=== PATIENT | female | born 1940 | race Caucasian/White ===

== ENCOUNTER 2017-09-03 22:09 | Emergency (ER) | payer MEDICARE, BC ==
[2017-09-03] MEDS ORDERED: Sodium Chloride 0.9% 1,000 ML IV SCH (23:00)
[2017-09-03] MEDS ORDERED: LORazepam 2 MG/ML SDV IVPUSH ONE (23:01)
[2017-09-03] MEDS ORDERED: Ondansetron 4 MG/2 ML SDV IVPUSH ONE (23:01)
[2017-09-03] MEDS ORDERED: Meclizine 25 MG Tab PO ONE (23:58)
[2017-09-04] MEDS ORDERED: Sodium Chloride 0.9% 1,000 ML IV SCH (00:15)
--- NOTE | 2017-09-04 00:18 | EDM.PDOC ---
ED HPI GENERAL MEDICAL PROBLEM - General Chief Complaint: Syncope Stated Complaint: DIZZY Time Seen by Provider: 09/03/17 22:45 Source of Information: Reports: Patient, Family History Limitations: Reports: No Limitations - History of Present Illness INITIAL COMMENTS - FREE TEXT/NARRATIVE: pt arrived with marked vertigo. She has had many episodes like this. She was vomiting markedly. She did not have a headache. Onset: Today Duration: Hour(s): Location: Reports: Other ( came on suddenly this pm. ) Associated Symptoms: Reports: Nausea/Vomiting, Other ( vertigo) - Related Data Allergies Allergy/AdvReac Type Severity Reaction Status Date / Time acetaminophen [From [place]] Allergy Itching Verified 09/03/17 23:15 hydrocodone [From [place]] Allergy Itching Verified 09/03/17 23:15 lisinopril Allergy Cannot Verified 09/03/17 23:15 Remember lovastatin Allergy Body Aches Verified 09/03/17 23:15 oxycodone Allergy Cannot Verified 09/03/17 23:15 Remember Penicillins Allergy Cannot Verified 09/03/17 23:04 Remember Sulfa (Sulfonamide Allergy Cannot Verified 09/03/17 23:04 Antibiotics) Remember Home Meds: Home Meds Levothyroxine Sodium [Synthroid] 100 mcg PO DAILY 09/03/17 [History] Meclizine [Antivert] 25 mg PO ASDIRECTED PRN 09/03/17 [History] Ondansetron [Zofran ODT] 4 mg PO ASDIRECTED PRN 09/03/17 [History] Aspirin 81 mg PO DAILY 09/04/17 [History] Calcium Carbonate/Vitamin D3 [Os-Faheem 500+D] 1 tab PO DAILY 09/04/17 [History] Loratadine [Claritin] 10 mg PO DAILY 09/04/17 [History] Meloxicam [Mobic] 7.5 mg PO DAILY 09/04/17 [History] Metoprolol Succinate 50 mg PO DAILY 09/04/17 [History] Simvastatin [Zocor] 40 mg PO DAILY 09/04/17 [History] buPROPion [Wellbutrin SR] 100 mg PO DAILY 09/04/17 [History] Past Medical History HEENT History: Reports: Hard of Hearing Cardiovascular History: Reports: High Cholesterol, Hypertension [employer] History: Reports: Endocrine/Metabolic History: Reports: Hypothyroidism - Past Surgical History GI Surgical History: Reports: Cholecystectomy Musculoskeletal Surgical History: Reports: Hip Replacement Social & Family History - Tobacco Use Smoking Status *Q: Never Smoker - Caffeine Use Caffeine Use: Reports: Coffee - Recreational Drug Use Recreational Drug Use: No ED ROS GENERAL - Review of Systems Review Of Systems: See Below Constitutional: Reports: Diaphoresis HEENT: Reports: No Symptoms Respiratory: Reports: No Symptoms Cardiovascular: Reports: No Symptoms Endocrine: Reports: No Symptoms GI/Abdominal: Reports: Nausea, Vomiting, Other ( vertigo. ) : Reports: No Symptoms Musculoskeletal: Reports: No Symptoms Skin: Reports: No Symptoms Psychiatric: Reports: Anxiety ED EXAM, DIZZINESS - Physical Exam Exam: See Below Text/Narrative:: pt arrived with marked vertigo and vomiting that stated suddenly this evening. she does not have a headache but she is seeing double. Exam Limited By: No Limitations General Appearance: Alert, Anxious, Moderate Distress, Other (pupils equal and reactive. ) Ears: Normal TMs Nose: Normal Inspection Throat/Mouth: Normal Inspection Head Exam: Atraumatic Neck: Normal Inspection Respiratory/Chest: No Respiratory Distress Cardiovascular: Regular Rate, Rhythm (Female) Exam: Deferred Rectal (Female) Exam: Deferred Neurological: Alert Back Exam: Normal Inspection Extremities: Normal Inspection Psychiatric: Anxious Course - Vital Signs Last Recorded V/S: Last Vital Signs Temp 35.0 C L 09/04/17 01:37 Pulse 77 09/04/17 01:37 Resp 14 09/04/17 01:37 BP 156/81 H 09/04/17 01:37 Pulse Ox 88 L 09/04/17 01:37 - Orders/Labs/Meds Labs: Laboratory Tests 09/03/17 09/03/17 09/04/17 Range/Units 23:10 23:10 01:10 WBC 7.8 (4.5-11.0) K/uL RBC 4.69 (3.30-5.50) M/uL Hgb 14.4 (12.0-15.0) g/dL Hct 42.1 (36.0-48.0) % MCV 90 (80-98) fL MCH 31 (27-31) pg MCHC 34 (32-36) % Plt Count 193 (150-400) K/uL Neut % (Auto) 71 H (36-66) % Lymph % (Auto) 19 L (24-44) % [place] % (Auto) 9 H (2-6) % Eos % (Auto) 1 L (2-4) % Baso % (Auto) 0 (0-1) % Sodium 140 (140-148) mmol/L Potassium 3.7 (3.6-5.2) mmol/L Chloride 105 (100-108) mmol/L Carbon Dioxide 24 (21-32) mmol/L Anion Gap 11.1 (5.0-14.0) mmol/L BUN 22 H (7-18) mg/dL Creatinine 1.3 H (0.6-1.0) mg/dL Est Cr Clr Drug Dosing 29.03 mL/min Estimated GFR (MDRD) 40 L (>60) Glucose 134 H (74-106) mg/dL Calcium 8.9 (8.5-10.1) mg/dL Total Bilirubin 0.9 (0.2-1.0) mg/dL AST 21 (15-37) U/L ALT 26 (12-78) U/L Alkaline Phosphatase 89 (46-116) U/L Total Protein 6.8 (6.4-8.2) g/dL Albumin 3.7 (3.4-5.0) g/dL Globulin 3.1 (2.3-3.5) g/dL Albumin/Globulin Ratio 1.2 (1.2-2.2) Urine Color Yellow Urine Appearance Clear Urine pH 7.0 (4.5-8.0) Ur Specific [place] 1.010 (1.008-1.030) Urine Protein Negative (NEGATIVE) mg/dL Urine Glucose (UA) Normal (NEGATIVE) mg/dL Urine Ketones Negative (NEGATIVE) mg/dL Urine Occult Blood Negative (NEGATIVE) Urine Nitrite Negative (NEGATIVE) Urine Bilirubin Negative (NEGATIVE) Urine Urobilinogen Normal (NORMAL) mg/dL Ur Leukocyte Esterase Moderate (NEGATIVE) Urine RBC 0-5 (0-5) Urine WBC 0-5 (0-5) Ur Epithelial Cells Few Amorphous Sediment Not seen Urine Bacteria Few Urine Mucus Not seen Meds: Medications Discontinued Medications Generic Name Dose Route Start Last Admin Trade Name Freq PRN Reason Stop Dose Admin Sodium Chloride 1,000 mls @ 999 mls/hr 09/03/17 23:00 09/03/17 23:12 Normal Saline IV 999 mls/hr ASDIRECTED BETTIE Administration Sodium Chloride 1,000 mls @ 400 mls/hr 09/04/17 00:15 09/04/17 00:17 Normal Saline IV 400 mls/hr ASDIRECTED BETTIE Administration Ibuprofen 600 mg 09/04/17 02:03 09/04/17 02:10 Motrin PO 09/04/17 02:04 600 mg ONETIME ONE Administration Labetalol HCl 20 mg 09/04/17 01:10 09/04/17 01:15 Normodyne IVPUSH 09/04/17 01:11 20 mg NOW ONE Administration Protocol Labetalol HCl 20 mg 09/04/17 01:37 09/04/17 01:48 Normodyne IVPUSH 09/04/17 01:38 Not Given NOW ONE Protocol Lorazepam 0.5 mg 09/03/17 23:01 09/03/17 23:10 Ativan IVPUSH 09/03/17 23:02 0.5 mg ONETIME ONE Administration Meclizine HCl 25 mg 09/03/17 23:58 09/04/17 00:03 Antivert PO 09/03/17 23:59 25 mg ONETIME ONE Administration Ondansetron HCl 4 mg 09/03/17 23:01 09/03/17 23:08 Zofran IVPUSH 09/03/17 23:02 4 mg ONETIME ONE Administration Ondansetron HCl 4 mg 09/04/17 02:03 09/04/17 02:10 Zofran IVPUSH 09/04/17 02:04 4 mg ONETIME ONE Administration - Re-Assessments/Exams Free Text/Narrative Re-Assessment/Exam: 09/04/17 01:38 pt was given zoforan, ativan .5 and antivert. She is feeling better. The double vision is improving/. She had a cat scn of the head which was neg. 09/04/17 01:40 Departure - Departure Time of Disposition: 01:41 Disposition: Home, Self-Care 01 Condition: Fair Clinical Impression: Inner ear dysfunction - Discharge Information Instructions: Vertigo, [id number] Referrals: PCP,None [Primary Care Provider] - Forms: ED Department Discharge Care Plan Goals: use zoforan that she has at home as needed, mecyline 25 1 tab tid for the next 2 days then prn, low activity, rtc if increased problems. follow up with Dr Collazo
[2017-09-04] MEDS ORDERED: Labetalol 20 MG/4 ML Syringe IVPUSH ONE ×2 (01:10→01:37)
[2017-09-04] MEDS ORDERED: Ondansetron 4 MG/2 ML SDV IVPUSH ONE (02:03)
[2017-09-04] MEDS ORDERED: Ibuprofen 600 MG Tab PO ONE (02:03)
== END 2017-09-04 02:19 | disposition home or self-care (01) ==
LOC: JP.ED 22:09
DX: H83.2X9 Labyrinthine dysfunction, unspecified ear (principal); I10 Essential (primary) hypertension; Z88.0 Allergy status to penicillin; Z88.2 Allergy status to sulfonamides; Z88.8 Allergy status to other drugs, medicaments and biological substances; Z88.5 Allergy status to narcotic agent; Z79.899 Other long term (current) drug therapy
CPT/HCPCS: 36415; 70450; 80053; 81001; 85025; 96361; 96374; 96375; 99284; A9270; J2060; J2405; J7030

== ENCOUNTER 2023-02-17 17:37 | Emergency (ER) | payer MEDICARE ==
[2023-02-17] MEDS ORDERED: Ketorolac 15 MG/ML SDV IM ONE (18:10)
== END 2023-02-17 18:53 | disposition home or self-care (01) ==
LOC: JP.ED 17:37
DX: U07.1 COVID-19 (principal); G44.209 Tension-type headache, unspecified, not intractable; I10 Essential (primary) hypertension; E03.9 Hypothyroidism, unspecified; Z86.16 Personal history of COVID-19; Z88.8 Allergy status to other drugs, medicaments and biological substances; Z88.5 Allergy status to narcotic agent; Z88.0 Allergy status to penicillin; Z88.2 Allergy status to sulfonamides; Z79.899 Other long term (current) drug therapy
CPT/HCPCS: 96372; 99283; J1885